=== PATIENT | female | born 1960 | race Caucasian/White ===

== ENCOUNTER 2017-06-08 07:41 | Emergency (ER) | payer BC ==
[~2017-06-08] VITALS: Ht 177.8 cm; Wt 63.5 kg
[2017-06-08 07:41] VITALS: BP_SYST 123
[2017-06-08] MEDS ORDERED: BACITRACIN 1 GM OINT TP ONE (08:34)
== END 2017-06-08 08:35 | disposition home or self-care (01) ==
LOC: SED 07:41
DX: S61.012A Laceration without foreign body of left thumb without damage to nail, initial encounter (principal); Z88.5 Allergy status to narcotic agent; Z90.49 Acquired absence of other specified parts of digestive tract; Z90.710 Acquired absence of both cervix and uterus; W45.8XXA Other foreign body or object entering through skin, initial encounter; Y93.89 Activity, other specified; Y92.89 Other specified places as the place of occurrence of the external cause; Y99.8 Other external cause status
CPT/HCPCS: 99283